=== PATIENT | male | born 1945 | race Caucasian/White ===

== ENCOUNTER 2021-06-14 01:37 | Emergency (ER) | payer OTHER, MEDICARE ==
[~2021-06-14] VITALS: Ht 170.2 cm; Wt 118.2 kg
[2021-06-14] MEDS ORDERED: orphenadrine citrate 60mg/2ml inj. IM ONE (03:20)
[2021-06-14] MEDS ORDERED: LIDOcaine 5% patch TP ONE (03:20)
[2021-06-14] MEDS ORDERED: ondansetron 4mg rapidly disintigrating tab PO ONE (03:20)
[2021-06-14] MEDS ORDERED: HYDROcodone/acetaminophen 5mg/325mg tablet PO ONE (03:20)
[2021-06-14] MEDS ORDERED: CYCL-1 PO (04:21)
[2021-06-14] MEDS ORDERED: HYDR-3965 PO (04:21)
[2021-06-14 04:36] VITALS: BP 162/90
[2021-06-14] MEDS ORDERED: LIDOcaine 1% W/epiNEPHrine 1:100,000 20ml vial ONE (08:00)
== END 2021-06-14 04:38 | disposition home or self-care (01) ==
LOC: ER 01:37
DX: M62.838 Other muscle spasm (principal)
CPT/HCPCS: 20552; 93005; 96372; 99284; J2360; J3490

== ENCOUNTER 2024-05-11 18:53 | Emergency (ER) | payer OTHER, MEDICARE ==
[~2024-05-11] VITALS: Ht 170.2 cm; Wt 112.7 kg
[~2024-05-11 18:53] MED LIST: CYCL-1 PO
[2024-05-11] MEDS ORDERED: CEPH-585 PO (20:44)
[2024-05-11 21:07] VITALS: BP 134/70; PULSE 77; RESP 18; TEMP 98; O2SAT 98
[2024-05-11] MEDS: CefTRIAXone 1000mg IM Kit (w/lidocaine diluent) IM ONE (21:26)
== END 2024-05-11 21:27 | disposition home or self-care (01) ==
LOC: ER 18:54
DX: L03.116 Cellulitis of left lower limb (principal); Z88.6 Allergy status to analgesic agent
CPT/HCPCS: 96372; 99283; J0696